=== PATIENT | male | born 1995 | race Caucasian/White ===

== ENCOUNTER 2021-06-08 16:59 | Emergency (ER) | payer BC ==
[2021-06-08] MEDS: Dexamethasone 10 MG/ML SDV PO ONE ×2 (18:33→18:34)
[2021-06-08] MEDS ORDERED: Racepinephrine 2.25% 0.5 ML Neb Soln NEB ONE ×2 (19:12→22:25)
[2021-06-08] MEDS ORDERED: Sodium Chloride 0.9% Inhalation Soln 3 ML Neb INH PRN ×2 (19:12→22:25)
[2021-06-08] MEDS ORDERED: Alum Hydro/Mag Hydro/Simeth XS 15 ML, Metoclopramide 5 MG, Lidocaine 2% 5 ML PO ONE ×3 (20:22)
[2021-06-08] MEDS ORDERED: Pantoprazole 40 MG Tab.CR PO STA (22:26)
[2021-06-08] MEDS ORDERED: predniSONE 20 MG Tab PO ONE (23:40)
== END 2021-06-09 02:20 | disposition home or self-care (01) ==
LOC: MW.ED 16:59
DX: J10.1 Influenza due to other identified influenza virus with other respiratory manifestations (principal); J38.5 Laryngeal spasm; Z20.822 Contact with and (suspected) exposure to COVID-19
CPT/HCPCS: 70360; 70490; 71045; 87070; 87635; 87880; 99284; A9270; J8540; U0002

== ENCOUNTER 2022-11-20 12:04 | Emergency (ER) | payer BC ==
[2022-11-20] MEDS ORDERED: Lidocaine 1% with EPINEPHrine 1:100,000 20 ML MDV INJECT ONE (12:43)
== END 2022-11-20 13:22 | disposition home or self-care (01) ==
LOC: MW.ED 12:04
DX: S51.812A Laceration without foreign body of left forearm, initial encounter (principal); W22.8XXA Striking against or struck by other objects, initial encounter
CPT/HCPCS: 12001; 73090-26-LT; 73090-LT; 99283; J3490

== ENCOUNTER 2024-07-18 19:49 | Emergency (ER) | payer BC ==
[2024-07-18] MEDS: diphenhydrAMINE 50 MG Cap PO ONE (22:17)
[2024-07-18] MEDS: Famotidine 20 MG Tab PO ONE (22:18)
[2024-07-18] MEDS: Lidocaine 2% Viscous Solution 15 ML UD PO ONE (22:18)
== END 2024-07-18 23:26 | disposition home or self-care (01) ==
LOC: MW.ED 19:49
DX: J38.3 Other diseases of vocal cords (principal); Z79.899 Other long term (current) drug therapy; Z75.8 Other problems related to medical facilities and other health care
CPT/HCPCS: 71045; 99283; A9270; 99284